=== PATIENT | male | born 1960 | race Caucasian/White ===

== ENCOUNTER → 2017-03-06 08:02 | Outpatient (CLI) | payer BC ==
[2014-12-28 14:00] VITALS: BMI 30.6
[~2017-03-06 08:02] MED LIST: ASPIRIN 81 MG E81 MG PO; ATIVAN0.5 MG PO; CLARITIN 10 MG10 MG PO; ERGOCAL; FEXOFENADINE H180 MG PO; FLOVENT DISKU100 MCG INH; LEVOTHROID125 MCG PO; MELATONIN 3 MG1 TAB OR; MULTI-DAY VITAM1 TAB PO; PLAVIX75 MG PO; PRILOSEC10 MG; PROTONIX40 MG PO; SINGULAIR10 MG PO; SYNTHROID112 MCG PO; VENTOLIN HFA18 GM INH; ZOCOR40 MG PO; ZYLOPRIM100 MG PO; ZYRTEC10 MG PO
== END ==
LOC: D.RAD 08:02
DX: R13.10 Dysphagia, unspecified (principal)

== ENCOUNTER → 2017-04-03 09:06 | Outpatient (CLI) | payer BC ==
[2014-12-28 14:00] VITALS: BMI 30.6
== END | disposition home or self-care (01) ==
LOC: D.CT 09:06
DX: R10.9 Unspecified abdominal pain (principal); R11.0 Nausea

== ENCOUNTER → 2017-04-30 13:03 | Outpatient (CLI) | payer BC ==
[2014-12-28 14:00] VITALS: BMI 30.6
== END | disposition home or self-care (01) ==
LOC: D.CT 13:03
DX: R91.1 Solitary pulmonary nodule (principal)

== ENCOUNTER → 2017-08-06 09:31 | Outpatient (CLI) | payer BC ==
[2014-12-28 14:00] VITALS: BMI 30.6
== END | disposition home or self-care (01) ==
LOC: D.CT 09:31
DX: R91.1 Solitary pulmonary nodule (principal)

== ENCOUNTER → 2017-10-01 08:30 | Outpatient (CLI) | payer BC ==
[2014-12-28 14:00] VITALS: BMI 30.6
[2017-10-01 09:34] LABS: ALBUMIN 4.1 g/dL (3.4-5.0); BILIRUBIN - DIRECT 0.08 mg/dL (0.00-0.30); BILIRUBIN - INDIRECT 0.26 mg/dL (0.00-1.00); BILIRUBIN - TOTAL 0.34 mg/dL (0.2-1.3); PROTEIN - SERUM 6.9 g/dL (6.4-8.2)
== END | disposition home or self-care (01) ==
LOC: D.US 08:30
PROVIDERS: Internal Medicine Gastroenterology
DX: K76.0 Fatty (change of) liver, not elsewhere classified (principal)

== ENCOUNTER → 2018-04-03 08:02 | Outpatient (CLI) | payer BC ==
[2014-12-28 14:00] VITALS: BMI 30.6
[2018-04-03 08:45] LABS: ALBUMIN 4.3 g/dL (3.4-5.0); BILIRUBIN - DIRECT 0.17 mg/dL (0.00-0.30); BILIRUBIN - INDIRECT 0.43 mg/dL (0.00-1.00); BILIRUBIN - TOTAL 0.6 mg/dL (0.2-1.3)
== END | disposition home or self-care (01) ==
LOC: D.US 08:02
PROVIDERS: Internal Medicine Gastroenterology
DX: K76.0 Fatty (change of) liver, not elsewhere classified (principal); K80.80 Other cholelithiasis without obstruction

== ENCOUNTER → 2018-04-26 09:17 | Outpatient (CLI) | payer BC ==
[2014-12-28 14:00] VITALS: BMI 30.6
[2018-04-26 09:53] LABS: BASOPHILS 0.5 % (0-2); EOSINOPHILS 3.7 % (0-7); HEMOGLOBIN 14.9 g/dL (13.5-17.5); IMMATURE GRANULOCYTES 0.2 % (0-5); LYMPHOCYTES 27.5 % (15-50); MCH 35.6 pg (26.0-34.0); MCHC 33.9 g/dL (31.0-37.0); MEAN PLATELET VOLUME 10.2 fL (7.4-10.4); MONOCYTES 9.5 % (2-11); NEUTROPHILS 58.6 % (40-80); PLATELET COUNT 198 10x3/uL (130-400); RBC 4.19 10x6/uL (4.20-6.10); RDW 12.5 % (11.5-14.5); WBC 4.3 10x3/uL (4.8-10.8)
[2018-04-26 10:15] LABS: APTT 30.2 SECONDS (22.8-39.4); PROTIME 12.7 SECONDS (11.6-15.0)
[2018-04-26 10:16] LABS: % SATURATION 41 % (15-55); IRON 131 ug/dl (35-150); TOTAL IRON BIND CAPACITY 317 ug/dl (260-445); UNSAT IRON BIND CAPACITY 186 ug/dl (150-375)
[2018-04-26 10:28] LABS: ALBUMIN 4.1 g/dL (3.4-5.0); BILIRUBIN - DIRECT 0.16 mg/dL (0.00-0.30); BILIRUBIN - INDIRECT 0.42 mg/dL (0.00-1.00); BILIRUBIN - TOTAL 0.58 mg/dL (0.2-1.3); CHOL - HDL RATIO 2.9 ratio (2.3-4.9); LDL-HDL RATIO 1.6 ratio (1.5-3.5); PROTEIN - SERUM 6.7 g/dL (6.4-8.2)
[2018-04-27 10:13] LABS: HEPATITIS C ANTIBODY <0.1 S/CO RAT (0.0-0.9)
== END | disposition home or self-care (01) ==
LOC: D.LAB 09:17
PROVIDERS: Internal Medicine Gastroenterology
DX: K76.0 Fatty (change of) liver, not elsewhere classified (principal); R12 Heartburn; R79.89 Other specified abnormal findings of blood chemistry

== ENCOUNTER → 2018-09-27 09:44 | Outpatient (CLI) | payer BC ==
[2014-12-28 14:00] VITALS: BMI 30.6
== END | disposition home or self-care (01) ==
LOC: D.RT 09:44
PROVIDERS: ATTEND Nurse Practitioner Acute Care
DX: J44.9 Chronic obstructive pulmonary disease, unspecified (principal)

== ENCOUNTER → 2018-10-01 07:36 | Outpatient (CLI) | payer BC ==
[2014-12-28 14:00] VITALS: BMI 30.6
[2018-10-01 08:34] LABS: ALBUMIN 4.3 g/dL (3.4-5.0); BILIRUBIN - DIRECT 0.11 mg/dL (0.00-0.30); BILIRUBIN - INDIRECT 0.44 mg/dL (0.00-1.00); BILIRUBIN - TOTAL 0.55 mg/dL (0.2-1.3); PROTEIN - SERUM 7.5 g/dL (6.4-8.2)
== END | disposition home or self-care (01) ==
LOC: D.US 07:36
PROVIDERS: ATTEND Internal Medicine Gastroenterology
DX: K76.0 Fatty (change of) liver, not elsewhere classified (principal)

== ENCOUNTER → 2019-04-04 07:35 | Outpatient (CLI) | payer BC ==
[2014-12-28 14:00] VITALS: BMI 30.6
[2019-04-04 08:23] LABS: ALBUMIN 4.1 g/dL (3.4-5.0); BILIRUBIN - DIRECT 0.17 mg/dL (0.00-0.30); BILIRUBIN - INDIRECT 0.32 mg/dL (0.00-1.00); BILIRUBIN - TOTAL 0.49 mg/dL (0.2-1.3); PROTEIN - SERUM 6.8 g/dL (6.4-8.2)
== END | disposition home or self-care (01) ==
LOC: D.US 07:35
PROVIDERS: ATTEND Internal Medicine Gastroenterology
DX: K76.0 Fatty (change of) liver, not elsewhere classified (principal)

== ENCOUNTER → 2020-01-19 09:48 | Outpatient (CLI) | payer BC ==
[2014-12-28 14:00] VITALS: BMI 30.6
== END | disposition home or self-care (01) ==
LOC: D.HCCECHO 09:48
PROVIDERS: ATTEND Internal Medicine Cardiovascular Disease
DX: I25.10 Atherosclerotic heart disease of native coronary artery without angina pectoris (principal)

== ENCOUNTER 2020-02-05 07:03 | Day surgery (SDC) | payer BC ==
[~2020-02-05] VITALS: Ht 182.9 cm; Wt 94.9 kg
--- NOTE | ~2020-02-05 | HEMODYNAMI ---
PATIENT:SLIM JONES MEDICAL RECORD: [id number] : 62 LOCATION:[facility] ADMISSION DATE: 02/05/20 Generatedon:02/05/20209:34 Patient name: SLIM JONES Patient #: [id number] SSN: [id number] : 1960 Date of study: 02/05/2020 Page: Of Hemodynamic Procedure Report Patient Data Patient Demographics Procedure consent was obtained First Name: SLIM Gender: Male Last Name: KAREN : 1960 [facility] Initial: MENDOZA Age: 59 year(s) Patient #: [id number] Race: SSN: [id number] Additional ID: [id number] Contact details [address]: [address] [place] [address] State: [place] City: [place] Zip code: [address] Past Medical History Performed procedures and imaging results Date Procedure Procedure Results Comments 01/19/2020 Stress testing Positive->Intermediate INFERIOR AND with SPECT MPI risk APICAL History of disease Date Diagnosis Comments CAD Allergies Allergen Reaction Date Comments Reported Other allergy 02/05/2020 see chart Admission Admission Data Admission Date: 02/05/2020 Admission Time: 7:03 Arrival Date: 02/05/2020 Arrival Time: 9:00 Admit Source: Other Insurance Payor: Private health insurance [facility] #: [id number] Height (in.): 71.65 BSA: 2.16 (m2) Height (cm.): 182 BMI: 28.38 (kg/m2) Weight (lbs.): 207.24 Weight (kg.): 94 Lab Results Lab Result Date: 02/05/2020 Lab Result Time: 0:00 Biochemistry Name Units Result Min Max BUN mg/dl 21 --(----)-* 7 18 Creatinine mg/dl 1 --(--*-)-- 0.6 1.3 eGFR ml/min 81 *-(----)-- 90 120 NONAFRICAN CBC Name Units Result Min Max Hemoglobin g/dl 14.7 --(-*--)-- 13.5 17.5 Procedure Procedure Types Cath Procedure Diagnostic Procedure C [facility] w/Coronaries Sedation Charges Moderate Sedation up to 15 minutes Procedure Description Procedure Date Procedure Date: 02/05/2020 Procedure Start Time: 9:15 Procedure End Time: 9:32 Procedure Staff Name Function Ottoniel Mccray MD Performing Physician Rocio Gallardo RT Monitor Jonna Marte RT Scrub Franklyn Crum RN Nurse Procedure Data Cath Procedure Fluoroscopy Diagnostic fluoroscopy Total fluoroscopy Time: 2.7 time: 2.7 min min Diagnostic fluoroscopy Total fluoroscopy dose: 827 dose: 827 mGy mGy Contrast Material Contrast Material Type Amount (ml) Isovue 370 87 Entry Location Entry Primary Successful Side Size Upsize Upsize Entry Closure Roth ccessful Closure Location (Fr) 1 (Fr) 2 (Fr) Remarks Device Remarks Radial Right 6 Fr Mechanical artery Short Compression Estimated blood loss: 5 ml Diagnostic catheters Device Type Used For End Catheter Placement DIAGNOSTIC [place] 110cm 5 Fr catheter ([id number]) Procedure Complications No complications Procedure Medications Medication Administration Route Dosage Oxygen etCO2 Nasal cannula 2 l/min Lidocaine 2% added to field 20 Heparin Flush Bag added to field 2 bags (1000units/500ml NS) 0.9% NaCl I.V. 100 ml/hr Fentanyl I.V. 100 mcg Versed I.V. 2 mg Versed I.V. 1 mg Fentanyl I.V. 50 mcg Radial Cocktail I.A. 1 syringe (Verapamil 2mg/Nitro 400mcg/Heparin 1500units) Versed I.V. 2 mg Fentanyl I.V. 100 mcg Versed I.V. 1 mg Fentanyl I.V. 50 mcg Hemodynamics Rest BSA: 2.16 (m2) HGB: 14.7 (g/dl) O2 Consumption: Estimated: 250.2 (ml/min) O2 Con sumption indexed: Estimated:115.83 (ml/min/m) Heart Rate: 65 (bpm) Pressure Samples Time Site Value (mmHg) Purpose Heart Use Rate(bpm) 9:19 LV 125/-2,15 Snapshot 73 9:19 AO 93/58(70) Pullback 62 9:19 LV 104/10,18 Pullback 62 Gradients Valve Time Site 1 Site 2 Mean SEP/DFP Peak To Heart Use (mmHg) (sec/min) Peak Rate (mmHg) (bpm) Aortic 9:19 LV AO 5 5 11 62 104/10,18 93/58(70) Calculations Valve P-P Mean Valve Index Valve Source Name Gradient Area Flow (cm2) Aortic 11 5 11 5 Snapshots Pre Cath Intra NCS Post Cath Vital Signs Time Heart Resp SPO2 etCO2 NIBP Rhythm Pain Sedation Rate (ipm) (%) (mmHg) (mmHg) Status Level (bpm) 8:48:58 67 15 93 41.2 118/74(92) NSR 0 (11) 10(A) , No pain 8:53:12 64 14 94 38.2 120/63(82) NSR 0 (11) 10(A) , No pain 8:57:21 61 19 92 36.7 117/75(87) NSR 0 (11) 10(A) , No pain 9:01:31 67 16 98 38.1 100/85(97) NSR 0 (11) 10(A) , No pain 9:05:41 67 22 93 37.5 102/72(90) NSR 0 (11) 10(A) , No pain 9:09:55 60 11 95 30.7 105/64(93) NSR 0 (11) 10(A) , No pain 9:14:09 66 12 92 24.7 117/64(98) NSR 0 (11) 10(A) , No pain 9:18:27 63 11 94 36 117/64(84) NSR 0 (11) 10(A) , No pain 9:22:37 75 19 93 0 113/64(92) NSR 0 (11) 9(A) , No pain 9:26:51 78 12 94 32.2 116/73(98) NSR 0 (11) 9(A) , No pain 9:30:59 73 11 94 19.5 109/68(91) NSR 0 (11) 10(A) , No pain Medications Time Medication Route Dose Verified Delivered Reason Notes Effectiveness by by 8:48:02 Oxygen etCO2 2 l/min Ottoniel Buffie used for Nasal Mahendra Crum strip feeder cannula 8:48:11 Lidocaine 2% added 20ml Ottoniel Ottoniel for local to vial Mahendra Mccray MD anesthetic field 8:48:17 Heparin Flush added 2 bags Ottoniel Ottoniel used for Bag to Mahendra Mccray MD procedure (1000units/500ml field NS) 8:48:25 0.9% NaCl I.V. 100 Ottoniel Buffie Per ml/hr Mahendra Crum RN physician 9:09:06 Fentanyl I.V. 100 mcg Ottoniel Buffie for sedation Mahendra Crum RN 9:09:54 Versed I.V. 2 mg Ottoniel Buffie for sedation Mahendra Crum RN 9:14:25 Versed I.V. 1 mg Ottoniel Buffie for sedation Mahendra Crum RN 9:14:30 Fentanyl I.V. 50 mcg Ottoniel Buffie for sedation Mahendra Crum RN 9:18:24 Radial Cocktail I.A. 1 Ottoniel Ottoniel for (Verapamil syringe Mahendra Mccray MD vasodilation 2mg/Nitro 400mcg/Heparin 1500units) 9:18:54 Versed I.V. 2 mg Ottoniel Buffie for sedation Mahendra Crum RN 9:19:00 Fentanyl I.V. 100 mcg Ottoniel Buffie for sedation Mahendra Crum RN 9:24:02 Fentanyl I.V. 50 mcg Ottoniel Buffie for sedation Mahendra Crum RN 9:24:57 Versed I.V. 1 mg Ottoniel Buffie for sedation Mahendra Crum RN Procedure Log Time Note 8:18:11 Diagnostic Cath Status : Elective 8:18:28 Franklyn Crum RN sent for patient. Start room use. 8:18:29 Time tracking: Regular hours (M-F 7:00 - 5:00) 8:18:33 Plan of Care:Hemodynamics will remain stable., Cardiac rhythm will remain stable., Comfort level will be maintained., Respiratory function will remain adequate., Patient/ family verbilizes understanding of procedure., Procedure tolerated without complication., Recovers from procedure without complications.. 8:22:48 Informed consent obtained and on chart 8:24:03 Arrival Date: 02/05/2020 9:00:00 AM 8:24:24 Admit Source: Other 8::26 Insurance Payor : Private health insurance 8:25:26 Patient Height : 71.65 inches 8:25:29 Patient Weight : 207.24 lbs 8:26:08 Lab Result : eGFR NONAFRICAN 81 ml/min 8:26:08 Lab Result : Creatinine 1 mg/dl 8:26:08 Lab Result : BUN 21 mg/dl 8:26:08 Lab Result : Hemoglobin 14.7 g/dl 8:31:17 Procedure Status Elective Heart Cath (OP). 8:31:22 ACC Patient presents with Stable Angina CCS Anginal Class 2--Slight limitation of ordinary activity. 8:31:27 Patient received from Pre/Post Procedure Room to CCL 1 Alert and oriented. Tansferred to table in Supine position. 8:31:28 Warm blankets applied, and laura hugger turned on for patient comfort. 8:31:29 Correct patient and procedure confirmed by team. 8:31:29 ECG and BP/O2 sat monitors applied to patient. 8:31:45 H&P Date Dictated: 01/12/2020 Within 30 days and on chart.. 8:31:46 Pre-procedure instructions explained to patient. 8:31:46 Pre-op teaching completed and patient verbalized understanding. 8:31:48 Family unavailable. 8:31:49 Patient NPO since Midnight. 8:32:01 Patient allergic to Other allergysee chart 8:32:06 Lab results completed and on chart. 8:32:16 Stress Test: yes; abnormal INFERIOR AND APICAL 8:32:18 Alarms reviewed by R. N. 8:32:18 Sharps counted by scrub and verified by R.N. 8:34:43 Is the patient allergic to Iodine/contrast media? No. 8:34:45 Was the patient premedicated? No 8:34:47 Is patient on blood thinner?No 8:34:49 Patient diabetic? No. 8:34:51 If diabetic: On Metformin? N/A 8:34:52 ----Pre-sedation anethsthesia assessment.---- 8:34:55 Previous problem with sedation/anesthesia? No ? 8:34:59 Snore? Yes 8:35:00 Sleep apnea? Yes 8:35:01 Deviated septum? No 8:35:02 Opens mouth fully? Yes 8:35:03 Sticks out tongue? Yes 8:35:10 Airway obstruction? Yes ASTHMA 8:35:13 Dentures? No ? 8:35:17 Pre procedure: right dorsailis pedis pulse 2+ Normal; easily identifiable; not easily obliterated 8:35:20 Modified Merrick's test Ulnar < 7 seconds 8:35:27 IV patent on arrival in left hand with 0.9% NaCl at KVO. 8:35:32 Right Radial & Right Groin area was prepped with chlora-prep and draped in sterile fashion 8:35:44 2) 60-89 Mildly reduced kidney function, and other findings (as for stage 1) point to kidney disease. 8:36:01 Maximum allowable contrast dose (3.7 X eGFR X 0.75)225 ml. 8:47:51 Vital chart was started 8:47:54 Full Disclosure recording started 8:47:56 Baseline sample Acquired. 8:48:00 Rhythm: sinus rhythm 8:48:02 Oxygen 2 l/min etCO2 Nasal cannula was administered by Franklyn Crum RN; used for procedure; Verbal order read back and verified. 8:48:11 Lidocaine 2% 20ml vial added to field was administered by Ottoniel Mccray MD; for local anesthetic; Verbal order read back and verified. 8:48:17 Heparin Flush Bag (1000units/500ml NS) 2 bags added to field was administered by Ottoniel Mccray MD; used for procedure; Verbal order read back and verified. 8:48:25 0.9% NaCl 100 ml/hr I.V. was administered by Franklyn Crum RN; Per physician; Verbal order read back and verified. 9:07:48 --------ALL STOP TIME OUT------ 9:07:48 Final Timeout: patient, procedure, and site verified with staff and physician. All members of the team are in agreement. 9:07:51 Right Radial & Right Groin site verified by team. 9:07:56 Fire Safety Assessment: A--An alcohol-based skin anteseptic being used preoperatively., C--Open oxygen or nitrous oxide is being used., D--An ESU, laser, or fiber-optic light is being used. 9:08:00 Physical assessment completed. ASA score P 2 - A patient with mild systemic disease as per Ottoniel Mccray MD. 9:08:04 Sedation plan: IV Moderate Sedation Medication:Versed, Fentanyl 9:09:06 Fentanyl 100 mcg I.V. was administered by Franklyn Crum RN; for sedation; Verbal order read back and verified. 9::54 Versed 2 mg I.V. was administered by Franklyn Crum RN; for sedation; Verbal order read back and verified. 9:12:30 Use device set Radial Dx or PCI 9:12:31 ACIST Syringe (24684) opened to sterile field. 9:12:32 Medline Cath Pack ([id number]) opened to sterile field. 9:12:32 Bag Decanter (2002S) opened to sterile field. 9:12:33 ACIST Hand Control (38763) opened to sterile field. 9:12:34 ACIST Manifold (18980) opened to sterile field. 9:12:35 MBrace Wrist Support ([id number]) opened to sterile field. 9:12:36 NEEDLE Cook 21G 4cm Radial (H15201) opened to sterile field. 9:12:38 EMERALD Guide Wire (502-999) opened to sterile field. 9:12:39 SHEATH 6FR RAIN (5455186) opened to sterile field. 9:14:25 Versed 1 mg I.V. was administered by Franklyn Crum RN; for sedation; Verbal order read back and verified. 9:14:30 Fentanyl 50 mcg I.V. was administered by Franklyn Crum RN; for sedation; Verbal order read back and verified. 9:15:18 Procedure started. 9:15:53 Local anesthetic to right radial artery with Lidocaine 2% by Ottoniel Mccray MD.INITIAL ACCESS ONLY 9:17:36 A 6 Fr Short sheath was inserted into the Right Radial artery 9:17:50 A DIAGNOSTIC [place] 110cm 5 Fr catheter (750858) was advanced over the wire and used for . 9:18:24 Radial Cocktail (Verapamil 2mg/Nitro 400mcg/Heparin 1500units) 1 syringe I.A. was administered by Ottoniel Mccray MD; for vasodilation; Verbal order read back and verified. 9:18:54 Versed 2 mg I.V. was administered by Franklyn Crum RN; for sedation; Verbal order read back and verified. 9:19:00 Fentanyl 100 mcg I.V. was administered by Franklyn Crum RN; for sedation; Verbal order read back and verified. 9:19:13 Injector settings: Ml/sec: 5, Volume: 15, 9:19:15 LV hemodynamics recorded. 9:19:17 LV gram done using BOWENS 9:19:21 EF : 55 % 9:19:40 LCA angiography performed. 9:19:42 Injector settings: Ml/sec: 3, Volume: 6, 9:23:16 UNABLE TO ENGAGE RCA WITH TIGER CATHETER EXCHANGING. 9:23:21 Catheter exchanged over wire. 9:23:30 GUIDE 6FR AR 1.0 catheter ([id number]) opened to sterile field. 9:23:57 RCA angiography performed. 9:24:00 Injector settings: Ml/sec: 3, Volume: 6, 9:24:02 Fentanyl 50 mcg I.V. was administered by Franklyn Crum RN; for sedation; Verbal order read back and verified. 9:24:44 ACCDominant side:Co-Dominant 9:24:57 Versed 1 mg I.V. was administered by Franklyn Crum RN; for sedation; Verbal order read back and verified. 9:28:19 Catheter removed. 9:28:28 ZEPHYR REGULAR TR BAND (294244) opened to sterile field. 9:28:46 Sheath removed intact; hemostasis achieved with Mechanical Compression to the Right Radial artery. 9:28:49 Procedure ended.(Physican Out) 9:28:58 Fluoroscopy time 02.70 minutes. 9:29:02 Fluoroscopy dose: 827 mGy 9:29:02 Flurop Dose total: 827 9:29:09 Dose Area Product 33028 mGy/cm. 9:30:11 Contrast amount:Isovue 370 87ml. 9:30:15 Maximum allowable dose exceeded? No. 9:30:16 Sharps counted by scrub and verified by R.N. 9:30:21 [place] band inflated with 10cc of air. 9:30:23 Post Procedure Pulses reassessed and unchanged 9:30:25 Post procedure: right dorsailis pedis pulse 2+ Normal; easily identifiable; not easily obliterated. 9:30:29 Post-procedure physical assessment completed. ASA score P 2 - A patient with mild systemic disease as per Ottoniel Mccray MD. 9:30:33 Post procedure rhythm: unchanged. 9:30:36 Estimated blood loss: 5 ml 9:30:37 Post procedure instruction explained to patient.Patient verbalizes understanding. 9:30:38 Patient needs reinforcement of post procedure teaching. 9:30:59 Procedure type changed to Cath procedure, Diagnostic procedure, LHC, LHC w/Coronaries, Sedation Charges, Moderate Sedation up to 15 minutes 9:31:24 Procedure and supply charges have been captured, reviewed, submitted and are correct. 9:31:28 Procedure Complication : No complications 9:31:35 [facility] Findings: MVD- CABG consult 9:31:38 Operative report dictated upon procedure completion. 9:31:39 See physician's report for complete and final results. 9:31:41 Report given to Pre/Post Procedure Room. 9:31:45 Patient transfered to Pre/Post Procedure Room with Stretcher. 9:32:34 Vital chart was stopped 9:32:38 Procedure ended. 9:32:38 Full Disclosure recording stopped 9:33:02 End room use (Document Last) Device Usage Item Name Manufacture Quantity Catalog Hospital Part Current Minima l Lot# / Number Charge Number Stock Stock Serial# Code ACIST Acist 1 80834 851949 368823 [id number] 20 Syringe Medical (45743) Systems Inc Medline Medline 1 [id number] 175199 36678 927791 5 Cath Pack ([id number]) Bag Microtek 1 227478 06520 607880 5 Decanter Medical Inc. () ACIST Hand Acist 1 98284 952404 936470 077348 5 Control Medical (16903) Systems Inc ACIST Acist 1 17845 717167 550431 863102 5 Manifold Medical (59821) Systems Inc MBrace Advanced 1 140-0250-00 818077 96325 545993 5 Wrist Vascular Support Dynamics ([id number]) NEEDLE Cook Cook Medical 1 [id number] 294745 004834 504850 5 21G 4cm Radial (M33054) EMERALD Cardinal 1 502-455 928863 307590 098545 5 Guide Wire Health (502-455) SHEATH 6FR Cardinal 1 [id number] 263746 7999487 092267 5 [facility] ([id number]) DIAGNOSTIC Terumo 1 40-9715 230654 646796 357431 5 [place] 110cm 5 Fr catheter (966198) GUIDE 6FR Medtronic 1 [id number] 219235 58153 127490 1 AR 1.0 catheter ([id number]) ZEPHYR Cardinal 1 960785 520043 6223752 635302 5 REGULAR TR Health BAND (558064) Signature Audit [place] Stage Time Signature Unsigned Intra-Procedure 02/05/2020 Rocio Gallardo 9:34:10 AM RT(R) Intra-Procedure 02/05/2020 Franklyn Crum RN 9:34:24 AM Intra-Procedure 02/05/2020 Ottoniel Mccray MD 9:34:46 AM [facility] [address] [place] [address]
[2020-02-05] MEDS ORDERED: CELEXA10 MG PO (07:52)
[2020-02-05] MEDS ORDERED: PEPCID AC20 MG PO (07:53)
[2020-02-05] MEDS ORDERED: ROPINIROLE HCL2 MG PO (07:53)
[2020-02-05] MEDS ORDERED: DULERA 100 MCG8.8 GM INH (07:54)
[2020-02-05] MEDS ORDERED: CLARITIN 10 MG10 MG PO (07:54)
[2020-02-05] MEDS ORDERED: FLUTICASONE PRO16 GM NASAL (07:54)
[2020-02-05] MEDS ORDERED: L-LYSINE500 M1 PO (07:55)
[2020-02-05 08:06] VITALS: BP 129/66; Ht 182.9 cm; Wt 94.9 kg
[2020-02-05 08:13] LABS: BASOPHILS 0.4 % (0-2); HEMATOCRIT 43.6 % (42.0-54.0); HEMOGLOBIN 14.7 g/dL (13.5-17.5); IMMATURE GRANULOCYTES 1.9 % (0-5); LYMPHOCYTES 21.6 % (15-50); MCH 35.3 pg (26.0-34.0); MCHC 33.7 g/dL (31.0-37.0); MCV 104.6 fL (80.0-100.0); MEAN PLATELET VOLUME 9.5 fL (7.4-10.4); NEUTROPHILS 59.1 % (40-80); PLATELET COUNT 215 10x3/uL (130-400); RBC 4.17 10x6/uL (4.20-6.10); RDW 13.1 % (11.5-14.5); WBC 4.8 10x3/uL (4.8-10.8)
[2020-02-05 08:23] LABS: ALT (SGPT) 46 U/L (10-68); CALC OSMOLALITY 280 mosm/kg (275-300); CALCIUM 9.7 mg/dL (8.5-10.1); CARBON DIOXIDE 23.6 mmol/L (21.0-32.0); CHLORIDE - SERUM 105 mmol/L (98-107); CHOL - HDL RATIO 3.2 ratio (2.3-4.9); CHOLESTEROL, TOTAL 140 mg/dL (0-200); GLUCOSE 100 mg/dL (74-106); HDL CHOLESTEROL 44 mg/dL (32-96); LDL CHOLESTEROL 74 mg/dL (0-100); LDL-HDL RATIO 1.7 ratio (1.5-3.5); POTASSIUM - SERUM 4.2 mmol/L (3.5-5.1); SODIUM 139 mmol/L (136-145); TRIGLYCERIDE 114 mg/dL (30-200); UREA NITROGEN 21 mg/dL (7-18); eGFR NON AFRICAN AMERICAN 81 mL/min (90-120)
--- NOTE | 2020-02-05 09:40 | NUR ---
PT ARRIVED BY STRETCHER. PLACED ON MONITORS. ASSESSMENT COMPLETED. VSS AT THIS TIME. CALL LIGHT WITHIN REACH. FAMILY AT BEDSIDE. DR. SINGH ROUNDED AND SPOKE WITH PT AND PT'S FAMILY.
--- NOTE | 2020-02-05 09:55 | NUR ---
RIGHT WRIST Z BAND IN PLACE. NO BLEEDING/HEMATOMA NOTED. CALL LIGHT WITHIN REACH. VSS AT THIS TIME. PT RESTING COMFORTABLY. TOLERATING SIPS OF SODA. DENIES NAUSEA/PAIN.
[2020-02-05] MEDS ORDERED: VENTOLIN HFA [SP8 GM INH (09:59)
--- NOTE | 2020-02-05 10:21 | NUR ---
PT SET UP WITH SANDWICH TRAY AND DRINK. DENIES NAUSEA/PAIN. RIGHT WRIST Z BAND IN PLACE. NO BLEEDING/HEMATOMA NOTED. FAMILY AT BEDSIDE. VSS.
--- NOTE | 2020-02-05 10:44 | NUR ---
PT SITTING UP IN BED ALERT AND ORIENTED. DENIES NAUSEA/PAIN. RIGHT WRIST Z BAND IN PLACE. NO BLEEDING/HEMATOMA NOTED. O2 SAT 95% ON ROOM AIR. CALL LIGHT WITHIN REACH. FAMILY AT BEDSIDE.
--- NOTE | 2020-02-05 11:00 | NUR ---
2cc OF AIR REMOVED FROM Z BAND. NO BLEEDING/HEMATOMA NOTED. CALL LIGHT WITHIN REACH. FAMILY AT BEDSIDE.
--- NOTE | 2020-02-05 11:15 | NUR ---
3cc OF AIR REMOVED FROM Z BAND. NO BLEEDING/HEMATOMA NOTED. CALL LIGHT WITHIN REACH. VSS AT THIS TIME. FAMILY AT BEDSIDE. RESTING COMFORTABLY AT THIS TIME.
--- NOTE | 2020-02-05 11:30 | NUR ---
5CC OF AIR REMOVED FROM Z BAND. NO BLEEDING/HEMATOMA NOTED. VSS AT THIS TIME. CALL LIGHT WITHIN REACH. FAMILY AT BEDSIDE.
--- NOTE | 2020-02-05 11:45 | NUR ---
Z BAND REMOVED AND DRESSING APPLIED. TOLERATED WELL. NO BLEEDING/HEMATOMA NOTED. RIGHT WRIST BRACE IN PLACE. PIV D/C'D WITH CATH TIP INTACT. PT INSTRUCTED TO GET UP AND DRESSED AT THIS TIME. FAMILY AT BEDSIDE TO ASSIST.
--- NOTE | 2020-02-05 11:55 | NUR ---
DISCUSSED DISCHARGE INSTRUCTIONS WITH PT AND PT'S FAMILY. THEY VOICED UNDERSTANDING.
--- NOTE | 2020-02-05 12:00 | NUR ---
PT TAKEN TO RESTROOM. VOIDED WITHOUT DIFFICULTY. STEADY GAIT NOTED. PT TAKEN OUT TO VEHICLE BY WHEELCHAIR. NO S/S OF DISTRESS NOTED. ALL BELONGINGS AND PAPERWORK IN HAND. RIGHT WRIST DRESSING C/D/I. NO S/S OF HEMATOMA NOTED.
== END 2020-02-05 12:00 | disposition home or self-care (01) ==
LOC: D.CATH 07:03
PROVIDERS: ATTEND Internal Medicine Cardiovascular Disease
DX: I20.9 Angina pectoris, unspecified (principal); R94.39 Abnormal result of other cardiovascular function study; R06.00 Dyspnea, unspecified; I25.119 Atherosclerotic heart disease of native coronary artery with unspecified angina pectoris; I34.0 Nonrheumatic mitral (valve) insufficiency